=== PATIENT | male | born 1975 | race African-American/Black ===

== ENCOUNTER 2017-04-20 23:13 | Emergency (ER) | payer SELFPAY ==
[2017-04-21 01:39] LABS: BASOPHIL 0.1 % (0-2); EOSINOPHIL 0 % (0-5); HCT 48.4 % (42.0-52.0); HGB 16.9 g/dl (13.2-18.0); LYMPHOCYTE 3.9 % (15-48); MCHC 34.9 g/dL (32.0-36.0); MONOCYTE 3.3 % (0-12); NEUTROPHIL 92.7 % (41-80); PLT 337 K/uL (150-400); RBC 5.83 M/uL (4.70-6.00); WBC 14.1 K/uL (4.0-10.5)
[2017-04-21 01:44] LABS: BILIRUBIN NEGATIVE (NEGATIVE); BLOOD NEGATIVE Ery/uL (NEGATIVE); CLARITY CLEAR (CLEAR); COLOR YELLOW (YELLOW); GLUCOSE (U) NORMAL (NORMAL); KETONE (U) 1+ (SMALL) mg/dL (NEGATIVE); LEUKOCYTES NEGATIVE Leu/uL (NEGATIVE); NITRITE NEGATIVE (NEGATIVE); PROTEIN 1+ mg/dL (NEGATIVE); SPECIFIC GRAVITY >=1.030 (1.001-1.030)
[2017-04-21 01:45] LABS: INR 1.07 (0.9-1.2); PROTHROMBIN TIME 13.5 SECONDS (11.7-14.0); PTT 25.3 SECONDS (23.2-31.4)
[2017-04-21 01:50] LABS: MUCOUS TRACE; SQUAMOUS EPITHELIAL CELLS RARE
[2017-04-21 01:59] LABS: ALBUMIN 4.9 g/dL (3.5-5.0); BILIRUBIN - TOTAL 1.6 mg/dL (0.1-1.0); GLOBULIN (CALCULATION) 3.5 g/dL (2.2-4.2); POTASSIUM 5.4 mmol/L (3.5-5.1); TOTAL PROTEIN 8.4 g/dL (6.4-8.3)
[2017-04-21 05:17] LABS: ALBUMIN 3.9 g/dL (3.5-5.0); BILIRUBIN - TOTAL 1.3 mg/dL (0.1-1.0); GLOBULIN (CALCULATION) 3.2 g/dL (2.2-4.2); POTASSIUM 4.6 mmol/L (3.5-5.1); TOTAL PROTEIN 7.1 g/dL (6.4-8.3)
== END 2017-04-21 05:59 | disposition home or self-care (01) ==
LOC: FER 23:13
PROVIDERS: Emergency Medicine
DX: E86.0 Dehydration (principal); R11.2 Nausea with vomiting, unspecified; R74.8 Abnormal levels of other serum enzymes; R51 Headache; R10.813 Right lower quadrant abdominal tenderness; I10 Essential (primary) hypertension; F17.210 Nicotine dependence, cigarettes, uncomplicated
CPT/HCPCS: 36415; 36600; 70450; 80053; 81001; 82803; 83690; 84484; 85025; 85610; 85730; C9113; J1885; J2270; J2405

== ENCOUNTER 2022-07-11 23:18 | Emergency (ER) | payer OTHER ==
[~2022-07-11 23:18] MED LIST: IBUPROFEN800 MG PO; LIPITOR20 MG PO; NORVASC5 MG PO; PANTOPRAZOLE SO40 MG PO; TRAZODONE 100M100 MG PO
[2022-07-11 23:34] LABS: BASOPHIL 0.4 % (0-2); EOSINOPHIL 0.1 % (0-5); HGB 15.3 g/dl (13.2-18.0); LYMPHOCYTE 14.8 % (15-48); MCH 29.1 pg (25.0-31.0); MCHC 34.8 g/dL (32.0-36.0); MCV 83.8 fL (78.0-100.0); MPV 8.9 fL (6.0-9.5); NEUTROPHIL 74.5 % (41-80); NRBC 0; PLT 288 K/uL (150-400); RBC 5.25 M/uL (4.70-6.00); RDW 14.6 % (11.5-14.0); WBC 11.1 K/uL (4.0-10.5)
[2022-07-12 00:01] LABS: BUN/CREAT RATIO (CALC) 13.8 RATIO; CREATININE 0.87 mg/dL (0.67-1.17); POTASSIUM 4.1 mmol/L (3.5-5.1)
== END 2022-07-12 02:52 | disposition home or self-care (01) ==
LOC: FER 23:18
PROVIDERS: Emergency Medicine
DX: M94.0 Chondrocostal junction syndrome [Tietze] (principal); F17.200 Nicotine dependence, unspecified, uncomplicated
CPT/HCPCS: 36415; 71045; 71275; 80048; 83880; 84484; 85025; 85379; 93005; J1885; Q9967